=== PATIENT | female | born 1980 | race Caucasian/White ===

== ENCOUNTER 2018-03-02 01:14 | Emergency (ER) | payer OTHER ==
[~2018-03-02] VITALS: Ht 152.4 cm; Wt 59.0 kg
[2018-03-02 01:23] VITALS: BP 110/72
== END 2018-03-02 03:05 | disposition home or self-care (01) ==
LOC: ER 01:16
DX: Z77.21 Contact with and (suspected) exposure to potentially hazardous body fluids (principal)
CPT/HCPCS: 99282